=== PATIENT | female | born 1990 | race Caucasian/White ===

== ENCOUNTER 2018-11-17 22:19 | Emergency (ER) | payer OTHER ==
[~2018-11-17] VITALS: Ht 160 cm; Wt 100.0 kg
[2018-11-17 22:23] VITALS: Ht 160 cm; Wt 100.0 kg
[2018-11-17] MEDS ORDERED: JUNEL FE 1.5 M1 EACH PO (22:27)
[2018-11-17] MEDS ORDERED: VOLTAREN75 MG PO (23:23)
[2018-11-17 23:57] VITALS: BP 116/68
== END 2018-11-17 23:58 | disposition home or self-care (01) ==
LOC: D.ER 22:19
DX: M54.2 Cervicalgia (principal); S49.92XA Unspecified injury of left shoulder and upper arm, initial encounter; V43.52XA Car driver injured in collision with other type car in traffic accident, initial encounter; Y93.89 Activity, other specified; Y92.410 Unspecified street and highway as the place of occurrence of the external cause

== ENCOUNTER 2019-04-10 06:13 | Day surgery (SDC) | payer MEDICAID ==
[~2019-04-10] VITALS: Ht 160 cm; Wt 100.2 kg
[~2019-04-10 06:13] MED LIST: JUNEL FE 1.5 M1 EACH PO; THEREMS-M1 TAB PO; VOLTAREN75 MG PO
[2019-04-10 07:11] LABS: HEMATOCRIT 41.3 % (36.0-48.0); HEMOGLOBIN 13.6 g/dL (12-16); MCH 29.3 pg (26.0-34.0); MCHC 32.9 g/dL (31.0-37.0); MEAN PLATELET VOLUME 10.1 fL (7.4-10.4); RBC 4.64 10x6/uL (4.00-5.40); RDW 13.1 % (11.5-14.5); WBC 7.7 10x3/uL (4.8-10.8)
[2019-04-10 07:48] LABS: HCG URINE NEGATIVE (NEGATIVE)
[2019-04-10 07:51] VITALS: BP 103/71; Ht 160 cm; Wt 100.2 kg
[2019-04-10] MEDS ORDERED: PERCOCET 5-3251 TAB PO (10:19)
[2019-04-10] MEDS ORDERED: SULFAMETHOXAZOL1 TA2 PO (10:19)
--- NOTE | 2019-04-10 11:18 | NUR ---
1120 IV REMOVED AND PT DOING WELL
--- NOTE | 2019-04-10 11:48 | NUR ---
1145 VS GOOD. PAIN A ZERO AND PT VOIDED
--- NOTE | 2019-04-10 12:16 | OP ---
PATIENT NAME: LORENZO DAY MEDICAL RECORD: [id number] :92 LOCATION:[facility] ADMISSION DATE: SURGEON: PARVIZ HALE DO DATE OF OPERATION: 04/10/2019 PROCEDURE PERFORMED: Excision of a cyst of the right foot. PREOPERATIVE DIAGNOSIS: Cyst, right foot. POSTOPERATIVE DIAGNOSIS: Cyst, right foot. INDICATION FOR PROCEDURE: Ms. Day is a 28-year-old female who has had a cyst on her right foot for quite some time and rubbing with shoe wear. She had an MRI, which showed a synovial cyst coming off the fourth and fifth metatarsal and cuboid joint. It was bothering her a lot and she has had it go up and down and rub on her shoe. She was tired dealing with that pain and wanted something done surgically. I informed her of the risks including infection, bleeding, damage to nerves and vessels, need for further surgery. Recurrence of the cyst was a big likelihood of happening and she was aware of that and signed the consent as well as damage of sural nerve in the area and tendons as well. SURGEON: Parviz Hale DO DESCRIPTION OF PROCEDURE: The patient received 2 grams Ancef, taken to the operative suite, laid in supine position, given a general anesthetic and LMA was placed. The right lower extremity was prepped and draped in sterile fashion. A timeout was performed and everyone was in agreement with the correct side, site, patient and procedure. Right lower extremity was then exsanguinated with an Esmarch. Tourniquet was inflated to 350 mmHg and it was up for 14 minutes. The incision was then made over the cyst. Careful dissection was made down to the cyst and the stalk and this was removed. The stalk was then burned with a pickup and Bovie to ensure there was nothing left and then the capsule of the joint was closed with 3-0 Vicryl in a simple fashion. The tourniquet was then let down at 14 minutes. The site was anesthetized with 8 mL of 0.5% Marcaine with epinephrine and then the skin was closed with 4-0 nylon in a horizontal mattress fashion. Adaptic, 4 x 4's, Kerlix and Moses wrap was then placed on the foot and then she was placed in a postop shoe. She was awakened and taken to recovery in stable condition. BLOOD LOSS: Minimal. COMPLICATIONS: None. TRANSINT:[id number] Voice Confirmation ID: [id number] DOCUMENT ID: [id number] PARVIZ HALE DO at 1216 CC: [id number] DICTATION DATE: 04/10/19 1016 [employer]: 04/10/19 1047 [facility] 04/10/19 [id number] [place] [address]
== END 2019-04-10 11:48 | disposition home or self-care (01) ==
LOC: D.PAN 06:13 → D.OPS 14:30 → D.PAN 14:30
PROVIDERS: Anesthesiology; ATTEND Orthopaedic Surgery
DX: M71.371 Other bursal cyst, right ankle and foot (principal)